=== PATIENT | female | born 1960 | race Caucasian/White ===

== ENCOUNTER 2022-07-29 11:55 | Emergency (ER) | payer MEDICARE, MEDICAID, SELFPAY ==
[2022-07-29 12:17] VITALS: BP 127/78; PULSE 77; RESP 20; TEMP 36.7; O2SAT 96; BMI 40.7
[2022-07-29 13:33] VITALS: PULSE 65; RESP 18
--- NOTE | 2022-07-29 13:40 | CRLHL7_ITS ---
For Patients: As a result of the Cures Act, medical imaging exams and procedure reports are released immediately into your electronic medical record. You may view this report before your referring provider. If you have questions, please contact your health care provider. INDICATION: Known DVT. Increased swelling and pain. FINDINGS: A left lower extremity DVT ultrasound was performed using grayscale imaging as well as color and spectral Doppler analysis. Normal compressibility and respiratory variation of the bilateral common femoral veins. Thrombus throughout the left mid femoral, popliteal, peroneal, and posterior tibial veins. IMPRESSION: DVT in the left femoral, popliteal, peroneal, and posterior tibial veins. Patient states she had a below knee DVT and PE on 16 July 2022 and continues to get more DVTs. Dictated by Anthony Mercado MD @ 07/29/2022 3:00:37 PM Dictated by: Anthony Mercado MD @ 07/29/2022 15:00:46 (Electronically Signed)
--- NOTE | 2022-07-29 13:41 | ED_ITS ---
HPI - General Adult General Chief complaint: Extremity Pain/Injury, Lower Stated complaint: Blood clots in Legs and Lungs Time Seen by Provider: 07/29/22 13:24 History of Present Illness HPI narrative: This 62-year-old female has a history of DVT and pulmonary embolism and is currently on Coumadin. She was recently hospitalized in [facility]. She has been discharged and is visiting here with her daughter. She comes in reporting pain in her left lower extremity and has pain on the bottom of her feet. She does not report any shortness of breath or chest pain. Related Data Home Medications Medication Instructions Recorded Confirmed albuterol sulfate 90 mcg/actuation inhalation 07/29/22 aerosol inhaler lisinopril 5 mg tablet mg 07/29/22 metoclopramide HCl 10 mg tablet mg 07/29/22 omeprazole 40 mg capsule,delayed mg 07/29/22 release sertraline 100 mg tablet mg 07/29/22 tizanidine 4 mg tablet mg 07/29/22 trazodone 100 mg tablet mg 07/29/22 warfarin 5 mg tablet mg 07/29/22 Previous Rx's Medication Instructions Recorded enoxaparin 120 mg/0.8 mL 120 mg (0.8 mL) subcut Q12H #120 mL 07/29/22 subcutaneous syringe Allergies Allergy/AdvReac Type Severity Reaction Status Date / Time codeine Allergy Verified 07/29/22 12:16 NSAIDS (Non-Steroidal AdvReac Verified 07/29/22 12:16 Anti-Inflamma Review of Systems Status of ROS: Reports: 10 or more systems reviewed and unremarkable except as noted in History and below Narrative: Constitutional: No fevers, no weight gain or loss. Eyes: No discharge. No vision changes. HENT: No congestion, no sore throat, no ear pain. Cardiovascular: No chest pain, no palpitations. Respiratory: No shortness of breath, no wheezes, no cough. Gastrointestinal: No abdominal pain, no vomiting, no diarrhea. Genitourinary: No dysuria, no hematuria. Musculoskeletal: Normal range of motion. Left lower extremity pain and swelling due to deep venous thrombus. Pain on the bottom of both feet. Skin: No rashes, no pruritis. Neurological: No dizziness, weakness, sensory change, speech change. Endo/Heme/Allergies: No bruising or bleeding. No polydipsia. Pysch: no suicidality, no anxiety, no insomnia. All other systems reviewed and are negative. PFSH PFSH Social History Smoking Status: Former smoker Second hand tobacco smoke exposure: No How often do you have a drink containing alcohol: never How often do you have six or more drinks on one occasion: Never AUDIT-C Alcohol total score: 0 Non-prescribed substance use: denies use service: No Exam Narrative: Exam Narrative: Constitutional: Well-developed, well-nourished, no acute distress. HEENT: Normocephalic, atraumatic. Neck: Normal range of motion. Nontender. Supple. Heart: Regular. No murmurs. Normal rate. Intact distal pulses. Lungs: Clear to auscultation. No chest discomfort. No wheezes, rhonchi, or rales. Abdomen: Normal bowel sounds. Nontender. No rebound tenderness. Genitalia: Deferred. Back: No midline tenderness. Normal range of motion. Extremities: Normal range of motion. No injury. Erythema and callus on the bottom of both feet. Tenderness in the left lower extremity but no obvious bruising or swelling unilaterally. Skin: Intact. No rash. Warm. No erythema or pallor. Neurologic: No altered sensation. No weakness. Alert and oriented. Psychiatric: No suicidality. No anxiety or depression. No insomnia. Nursing notes and vitals signs are reviewed. Const: Vital Signs, click to edit/add: Vital Signs - 24 hr 07/29/22 12:17 07/29/22 13:33 Temperature 98.1 F Pulse Rate [Femora l] 77 65 Respiratory Rate 20 18 Blood Pressure [Ri ght Forearm] 127/78 Pulse Oximetry 96 Oxygen Delivery Me thod Room Air Room Air Course Vital Signs Vital signs: Initial Vital Signs Temperature 98.1 F 07/29/22 12:17 Temperature Source Temporal Artery Scan 07/29/22 12:17 Pulse Rate 77 07/29/22 12:17 Pulse Rhythm 07/29/22 12:17 Respiratory Rate 20 07/29/22 12:17 Blood Pressure 127/78 07/29/22 12:17 Blood Pressure Mean 94 07/29/22 12:17 Blood Pressure Position Sitting 07/29/22 12:17 Pulse Oximetry 96 07/29/22 12:17 Oxygen Delivery Method 07/29/22 12:17 Vital Signs Temperature 98.1 F 07/29/22 12:17 Pulse Rate 77 07/29/22 12:17 Respiratory Rate 20 07/29/22 12:17 Blood Pressure 127/78 07/29/22 12:17 Pulse Oximetry 96 07/29/22 12:17 Oxygen Delivery Method 07/29/22 12:17 Temperature 98.1 F 07/29/22 12:17 Pulse Rate 65 07/29/22 13:33 Respiratory Rate 18 07/29/22 13:33 Blood Pressure 127/78 07/29/22 12:17 Pulse Oximetry 96 07/29/22 12:17 Oxygen Delivery Method 07/29/22 13:33 Medical Decision Making MDM Narrative Medical decision making narrative: This patient comes in reporting increased pain in her left leg and pain on the bottom of her feet. She has known deep venous thrombosis in the left leg with associated pulmonary embolism. She is currently on Coumadin. She does not report any shortness of breath or chest pain and arrives with normal vital signs. An ultrasound of the left lower extremity is obtained and when comparing with the patient's report of the location of the previous blood caught appears that there is an advancing clot up into most of the left thigh. Her previous clot location was in the upper calf and behind the knee. She has been taking Coumadin but is subtherapeutic with an INR at 1.44. Her daughter is a nurse and states that she was therapeutic a couple days ago. I spoke with the hospitalist leather production machine operator regarding advice for what to do with advancing clot despite being partially therapeutic on Coumadin. I suggested Lovenox now and as an outpatient and this was confirmed by Dr. Lindsay. The patient received 120 units of Lovenox subcutaneous with prescription for the same to be given twice daily. Her daughter is a nurse and she is connected with ongoing care at the [facility]. Her daughter will be able to administer Lovenox twice daily. Lab Data Labs: Lab Results 07/29/22 07/29/22 07/29/22 Range/Units 13:54 13:54 13:54 WBC 18.00 H (4.50-11.00) K/uL RBC 5.71 H (4.00-5.20) m/uL Hgb 13.4 (12.0-16.0) gm/dL Hct 41.8 (33.0-51.0) % MCV 73 L (80-100) fL MCH 24 L (26-34) pg MCHC 32 (32-36) gm/dL Plt Count 264 (140-440) K/uL Neut % (Auto) 74.7 H (42.0-72.0) % Lymph % (Auto) 17.1 L (20-44) % [place] % (Auto) 3.6 (0.0-11.0) % Eos % (Auto) 4.2 (0.0-7.0) % Baso % (Auto) 0.3 (0.0-3.0) % Neut # (Auto) 13.40 H (1.7-7.0) K/uL Lymph # (Auto) 3.10 H (0.90-2.90) K/uL [place] # (Auto) 0.60 (0.00-0.90) K/UL Eos # (Auto) 0.80 H (0.00-0.50) K/uL Baso # (Auto) 0.10 (0.00-0.30) K/uL Abs Immat Gran (auto) 0.00 (0.00-0.30) K/uL Imm/Tot Granulo (auto) 0.1 % Diff Slide Review Acceptable Review (Acceptable) INR 1.44 H (0.91-1.10) Sodium 139 (135-149) mmol/L Potassium 4.2 (3.6-5.1) mmol/L Chloride 104 (96-114) mmol/L Carbon Dioxide 22 (20-32) mmol/L BUN 15 (7-30) mg/dL Creatinine 0.6 (0.5-1.5) mg/dL Estimated Creat Clear 57.45 Estimated GFR 102 ml/min Glucose 99 (60-115) mg/dL Calcium 9.2 (8.4-10.6) mg/dL Discharge Plan Discharge Clinical Impression: Subtherapeutic international normalized ratio (INR), Deep venous thrombosis Patient Disposition: Home w/ Parent or Adult Condition: Unchanged Additional Instructions: Take Lovenox 120 units twice daily subcutaneously. Follow-up with INR clinic. Continue to take Coumadin as directed. Return if worsening symptoms happen. Prescriptions: New enoxaparin 120 mg/0.8 mL syringe 120 mg subcut Q12H Qty: 120 0RF No Action tizanidine 4 mg tablet sertraline 100 mg tablet omeprazole 40 mg capsule,delayed release(DR/EC) trazodone 100 mg tablet warfarin 5 mg tablet lisinopril 5 mg tablet albuterol sulfate 90 mcg/actuation HFA aerosol inhaler INHALATION metoclopramide HCl 10 mg tablet Follow Up/Referrals: Provider,Not a Local [Primary Care Provider] - Stand Alone Forms: [facility] Info Instructions
[2022-07-29 14:14] LABS: Chloride* 104 mmol/L (96-114); Potassium* 4.2 mmol/L (3.6-5.1); Sodium* 139 mmol/L (135-149)
[2022-07-29 14:17] LABS: Blood Urea Nitrogen* 15 mg/dL (7-30); Carbon Dioxide* 22 mmol/L (20-32); Creatinine* 0.6 mg/dL (0.5-1.5); Est. Creatinine Clearance* 57.45; Estimated Glomerular Filt Rate 102 ml/min
[2022-07-29 14:18] LABS: Calcium* 9.2 mg/dL (8.4-10.6); Glucose* 99 mg/dL (60-115)
[2022-07-29 14:28] LABS: Mean Corpuscular HGB Conc 32 gm/dL (32-36)
[2022-07-29 14:30] LABS: INR 1.44 (0.91-1.10); Prothrombin Time 18.3 Seconds
[2022-07-29 14:46] LABS: Slide Review Reflex Yes
[2022-07-29 14:48] LABS: Slide Review Acceptable Review (Acceptable)
[2022-07-29] MEDS: ENOXAPARIN 120 MG/0.8 ML INJ SUBCUT (15:51)
[2022-07-29 23:36] LABS: Basophils Percent Auto 0.4 % (0.0-3.0); Eosinophils Percent Auto 3.4 % (0.0-7.0); Hemoglobin* 13.3 gm/dL (12.0-16.0); Immature Granulocytes Pct Auto 0.3 %; Lymphocytes Percent Auto 18.6 % (20-44); Mean Corpuscular Hemoglobin 23 pg (26-34); Mean Corpuscular Volume 73 fL (80-100); Monocytes Percent Auto 3.9 % (0.0-11.0); Neutrophils Percent Auto 73.4 % (42.0-72.0); Platelet Count* 271 K/uL (140-440); Red Blood Count 5.77 m/uL (4.00-5.20); White Blood Count* 11.15 K/uL (4.50-11.00)
== END 2022-07-29 16:13 | disposition home or self-care (01) ==
PROVIDERS: Emergency Provider Emergency Medicine Emergency Medical Services
DX: I82.402 Acute embolism and thrombosis of unspecified deep veins of left lower extremity (principal); R79.1 Abnormal coagulation profile; Z79.01 Long term (current) use of anticoagulants
CPT/HCPCS: 36415; 80048; 85025; 85610; 93971; 96372; 99284; 99285; J1650